=== PATIENT | female | born 1965 | race Caucasian/White ===

== ENCOUNTER 2016-11-29 09:47 | Emergency (ER) | payer BC ==
[2016-11-29 09:52] VITALS: BMI 34.9
[2016-11-29 09:55] VITALS: BP 129/98; PULSE 64; RESP 17; TEMP 97.6; O2SAT 100
[2016-11-29] MEDS ORDERED: Lidocaine 5% Patch TD STA (10:02)
[2016-11-29] MEDS ORDERED: Oxycodone/Acetaminophen 5/325 mg Tab PO STA (10:03)
--- NOTE | 2016-11-29 10:06 | ED PDOC ---
Arrival/HPI - General Chief Complaint: Back Pain Time Seen by Provider: 11/29/16 09:58 Historian: Patient - History of Present Illness Narrative History of Present Illness (Text): 11/29/16 10:03 51 y/o female, pmh including chronic lower back pain and knee pain which she never had follow up, total hysterectomy, nkda, c/o lower back pain started to hurt again this morning with no fall or trauma. Lower back pain, aggravated by movement and posture, no nausea or vomiting, no urinary symptoms, no hematuria, no night sweat, no flank pain, no nausea or vomiting, non radiating, no urinary or bowel incontinence or retention, no palpitation, no other medical or psychological complaints. Past Medical History - Provider Review Nursing Documentation Reviewed: Yes - Tetanus Immunization Tetanus Immunization: Unknown - Cardiac Hx Hypertension: Yes - Musculoskeletal/Rheumatological Other/Comment: soft bones - Psychiatric Hx Substance Use: No - Surgical History Hx Hysterectomy: Yes - Anesthesia Hx Anesthesia: Yes Hx Anesthesia Reactions: No Hx Malignant Hyperthermia: No - Suicidal Assessment Feels Threatened In Home Enviroment: No Family/Social History - Physician Review Nursing Documentation Reviewed: Yes Family/Social History: Unknown Family HX Smoking Status: Never Smoked Hx Alcohol Use: No Hx Substance Use: No Hx Substance Use Treatment: No Allergies/Home Meds Allergies/Adverse Reactions: Allergies No Known Allergies Allergy (Verified 11/29/16 09:52) Review of Systems - Review of Systems Constitutional: absent: Fatigue, Fevers Eyes: absent: Vision Changes ENT: absent: Hearing Changes Respiratory: absent: SOB, Cough Cardiovascular: absent: Chest Pain Gastrointestinal: absent: Abdominal Pain, Nausea, Vomiting Musculoskeletal: Back Pain. absent: Arthralgias, Neck Pain, Joint Swelling, Myalgias Skin: absent: Rash, Pruritis, Skin Lesions, Laceration, Abscess, Ulcer Psychiatric: absent: Anxiety, Depression, Suicidal Ideation Physical Exam Vital Signs Reviewed: Yes Vital Signs Temp Pulse Resp BP Pulse Ox 11/29/16 09:48 97.6 F 64 17 129/98 H 100 Temperature: Afebrile Blood Pressure: Hypertensive Pulse: Regular Respiratory Rate: Normal Appearance: Positive for: Well-Appearing, Non-Toxic, Uncomfortable Pain Distress: Severe Mental Status: Positive for: Alert and Oriented X 3 - Systems Exam Head: Present: Atraumatic, Normocephalic Pupils: Present: PERRL Extroacular Muscles: Present: EOMI Conjunctiva: Present: Normal Mouth: Present: Moist Mucous Membranes Neck: Present: Normal Range of Motion Respiratory/Chest: Present: Clear to Auscultation, Good Air Exchange. No: Respiratory Distress, Accessory Muscle Use Cardiovascular: Present: Regular Rate and Rhythm, Normal S1, S2. No: Murmurs Abdomen: Present: Normal Bowel Sounds. No: Tenderness, Distention, Peritoneal Signs Back: Present: Normal Inspection, Paraspinal Tenderness (+ttp on the bilateral paraspinal region), Other (no rash, no cellulitis or streaking. ). No: CVA Tenderness, Midline Tenderness, Pain with Leg Raise, Decubitus Ulcer Upper Extremity: Present: Normal Inspection. No: Cyanosis, Edema Lower Extremity: Present: Normal Inspection. No: Edema Neurological: Present: GCS=15, CN II-XII Intact, Speech Normal Skin: Present: Warm, Dry, Normal Color. No: Rashes Psychiatric: Present: Alert, Oriented x 3, Normal Insight, Normal Concentration Medical Decision Making ED Course and Treatment: 11/29/16 10:06 -LS spine xray -Toradol IM/lidoderm patch/percocet -observe and reassess 11/29/16 12:35 -pain decreased significantly and feeling much better. -xray show degenerative changes which she will need pain management/physical therapy and orthopedic for follow up. -Discharge home with ibuprofen, flexeril, lidoderm patch, cane, heat compression , follow up with your own pmd and pain management/physical therapy and orthopedic within 2 days, return to the ER for any new or worsening signs or symptoms. - RAD Interpretation Radiology Orders: 11/29/16 10:04 LS SPINE WITH OBL > 18 YRS OLD [RAD] Stat PROCEDURE: Radiographs of the Lumbar Spine. HISTORY: Chronic low back pain COMPARISON: No prior. FINDINGS: BONES: There is 6 mm degenerative retrolisthesis of L4 on L5. Lumbar lordosis is maintained. Vertebral height is normal. There is no acute fracture, spondylolysis or spondylolisthesis. DISC SPACES: There are multilevel degenerative changes with anterior osteophytes, reduced disc heights and multilevel facet arthropathy, worse at L1-2 and L2-3. OTHER FINDINGS: Both sacroiliac joints are normal. There are no pathologic soft tissue calcifications. IMPRESSION: 1. No acute fracture. 2. Multilevel degenerative disc disease, worse at L1-2 and L2-3. Electrician'S Helper: Radiologist - Medication Orders Current Medication Orders: Discontinued Medications Ketorolac Tromethamine (Toradol) 60 mg IM STAT STA Stop: 11/29/16 10:03 Last Admin: 11/29/16 10:20 Dose: 60 MG IM Administration Charges Document 11/29/16 10:20 SE (Rec: 11/29/16 10:20 SE [id number]) Injection Site MAR Injection Site Right Vastus Lateralis Charges for Administration # of IM Administrations 1 Lidocaine (Lidoderm) 1 ea TD STAT STA Stop: 11/29/16 10:03 Last Admin: 11/29/16 10:20 Dose: 1 EA Comments: lower back MAR Transdermal Patch Site Document 11/29/16 10:20 SE (Rec: 11/29/16 10:20 SE [id number]) Transdermal Patch Site Transdermal Patch Site Left Lower Back Oxycodone/Acetaminophen (Percocet 5/325 Mg Tab) 1 tab PO STAT STA Stop: 11/29/16 10:04 Last Admin: 11/29/16 10:20 Dose: 1 TAB - PA / SOCIAL MEDIA PROJECT MANAGER / Resident Statement / has reviewed & agrees with the documentation as recorded. Disposition/Present on Arrival - Present on Arrival Any Indicators Present on Arrival: No History of DVT/PE: No History of Uncontrolled Diabetes: No Urinary Catheter: No History of Decub. Ulcer: No History Surgical Site Infection Following: None - Disposition Have Diagnosis and Disposition been Completed?: Yes Diagnosis: Degenerative joint disease (DJD) of lumbar spine, Chronic low back pain Disposition: HOME/ ROUTINE Disposition Time: 12:38 Patient Plan: Discharge Condition: IMPROVED Additional Instructions: Discharge home with ibuprofen, flexeril, lidoderm patch, cane, heat compression , follow up with your own pmd and pain management/physical therapy and orthopedic within 2 days, return to the ER for any new or worsening signs or symptoms. Prescriptions: Cyclobenzaprine [Cyclobenzaprine HCl] 10 mg PO TID PRN #21 tab PRN Reason: Other Lidocaine 5% [Lidoderm] 1 patch TP DAILY PRN #14 patch PRN Reason: Other Ibuprofen [Motrin Tab] 600 mg PO QID #24 tab Referrals: Tevin Reeves MD [Primary Care Provider] - Follow up with primary [place] Rob MD [Staff Provider] - Follow up with primary Forms: WORK NOTE
--- NOTE | 2016-11-29 11:36 | RAD ---
PROCEDURE: Radiographs of the Lumbar Spine. HISTORY: Chronic low back pain COMPARISON: No prior. FINDINGS: BONES: There is 6 mm degenerative retrolisthesis of L4 on L5. Lumbar lordosis is maintained. Vertebral height is normal. There is no acute fracture, spondylolysis or spondylolisthesis. DISC SPACES: There are multilevel degenerative changes with anterior osteophytes, reduced disc heights and multilevel facet arthropathy, worse at L1-2 and L2-3. OTHER FINDINGS: Both sacroiliac joints are normal. There are no pathologic soft tissue calcifications. IMPRESSION: 1. No acute fracture. 2. Multilevel degenerative disc disease, worse at L1-2 and L2-3.
== END 2016-11-29 12:50 | disposition home or self-care (01) ==
LOC: ED 09:47
DX: M47.896 Other spondylosis, lumbar region (principal); M54.5 Low back pain
CPT/HCPCS: 72110; 96372; 99284; J1885